=== PATIENT | female | born 1985 | race Caucasian/White ===

== ENCOUNTER 2023-09-15 08:43 | Emergency (ER) | payer OTHER ==
[~2023-09-15] VITALS: Ht 162 cm; Wt 81.0 kg
[2023-09-15] MEDS ORDERED: ESCI-2 (08:59)
[2023-09-15] MEDS ORDERED: [UNRECOGNIZED DRUG - CODE] (08:59)
[2023-09-15] MEDS ORDERED: BACL10TA (08:59)
[2023-09-15] MEDS ORDERED: LEVO1TAB7 (08:59)
[2023-09-15] MEDS ORDERED: NEOM10SO8 (08:59)
[2023-09-15] MEDS ORDERED: GBPN600T (08:59)
[2023-09-15] MEDS ORDERED: LEVO75TA6 (08:59)
[2023-09-15] MEDS ORDERED: FAMO20TA5 (08:59)
--- NOTE | 2023-09-15 09:20 | ED General ---
General Chief Complaint: Dizziness/Syncope Stated Complaint: SORE THROAT, EAR PAIN, PASSED OUT X2 Nursing Triage Note: ARRIVED VIA AMB TO ROOM 06 WITH COMPLAINTS OF SORE THORAT AND EAR ACHE X2 DAYS. STATES SHE PASSED OUT X2 THIS AM. UNKNOWN IF SHE HIT HER HEAD. COVID + 2 WEEKS AGO. Source of Information: Patient Exam Limitations: No Limitations History of Present Illness Date Seen by Provider: Sep 15, 2023 Time Seen by Provider: 09:20 Initial Comments Patient is a 37-year-old female who presents to the emergency department today with a chief complaint of syncope x2 this morning. Patient states that she has had a sore throat and earache for the last couple of days. She has been conge sted, taking DayQuil and NyQuil. She had COVID about 2 weeks ago and still feels a little rundown after that. She has a history of MS as well as thyroid disorder. Her primary care physician is Dr. MCADAMS. Her MS team [facility] at [facility]. She denies known fevers, chills, cough, shortness of breath. She states she got up this morning to do some salt water gargles and put some diclofenac gel on her neck. She states standing in the bathroom she started to feel a little lightheaded, she thinks she was going to sit down and then found herself on the floor. Her heard her in the bathroom and went in, found her and as he was holding her she had a second syncopal event. He states the first fall knocked the toilet from the bolts in the floor. She denies headache/head injury. No new complaints of pain. States that she feels like she has been drinking a good amount of water. Her MS has been stable for about 6 or 7 years. She is currently getting yearly MRIs but they stated she could move to every 2 years as she has been so stable. She takes Tecfidera. Patient tells me that she does have known history of syncope especially related to stress, IVs/blood draws. Timing/Duration: 1 Hour Severity: Moderate Associated Systoms: Malaise, Other (sore throat; neck pain) Allergies and Home Medications Allergies Coded Allergies: No Known Drug Allergies (Unverified , 09/04/10) Patient Home Medication List Home Medication List Reviewed: Yes Baclofen (Baclofen) 10 Mg Tablet, (Reported) Entered as Reported by: JYOTSNA ALEJO on 09/15/23858 Last Action: New Order Dimethyl Fumarate (Dimethyl Fumarate) 240 Mg Capsule., (Reported) Entered as Reported by: JYOTSNA ALEJO on 09/15/23858 Last Action: New Order Escitalopram Oxalate (Escitalopram Oxalate) 10 Mg Tablet, (Reported) Entered as Reported by: JYOTSNA ALEJO on 09/15/23858 Last Action: New Order Famotidine (Famotidine) 20 Mg Tablet, (Reported) Entered as Reported by: JYOTSNA ALEJO on 09/15/23858 Last Action: New Order Gabapentin (Gabapentin) 600 Mg Tablet, (Reported) Entered as Reported by: JYOTSNA ALEJO on 09/15/23858 Last Action: New Order Levonorgestrel-Ethin Estradiol (Lessina-28 Tablet) 0.1 Mg-20 Mcg Tablet, (Reported) Entered as Reported by: JYOTSNA ALEJO on 09/15/23858 Last Action: New Order Levothyroxine Sodium (Levothyroxine Sodium) 75 Mcg Tablet, (Reported) Entered as Reported by: JYOTSNA ALEJO on 09/15/23858 Last Action: New Order Neomycin/Polymyxin B Sulf/Hc (Tzwjmavy-Dvheyyoug-Fb Ear Soln) 3.5 Mg/Ml-10,000 Unit/Ml-1 % Solution, (Reported) Entered as Reported by: JYOTSNA ALEJO on 09/15/23858 Last Action: New Order Pseudoephedrine HCl (Pseudoephedrine ER) 120 Mg Tablet.er, 120 MG PO BID PRN for congestion Prescribed by: EDISON WAKEFIELD on 09/15/23 1141 Review of Systems Review of Systems Constitutional: see HPI, malaise EENTM: throat pain, other (hoarse voice; sore neck) Respiratory: no symptoms reported Cardiovascular: no symptoms reported Gastrointestinal: no symptoms reported Genitourinary: no symptoms reported Musculoskeletal: no symptoms reported Skin: no symptoms reported Psychiatric/Neurological: Other (syncope x2) Past Cvxshql-Wxcqjx-Owfwoo Hx Patient Social History Tobacco Use?: No Substance use?: No Physical Exam Vital Signs Vital Signs - First Documented 09/15/23 08:45 Temp 37.0 Pulse 119 Resp 16 B/P (MAP) 131/83 (99) Pulse Ox 98 O2 Delivery Room Air Capillary Refill : Less Than 3 Seconds Height, Weight, BMI Height: '" Weight: lbs. oz. kg; 30.00 BMI Method: General Appearance: No Apparent Distress, WD/WN, Anxious Eyes: Bilateral Eye Normal Inspection, Bilateral Eye PERRL, Bilateral Eye EOMI HEENT: PERRL/EOMI, Moist Mucous Membranes; No Pharyngeal Erythema; TM Abnormal (R) (bullae with effusion right TM); No Tonsillar Exudate, No Tonsillar Enlargement Neck: Full Range of Motion, Lymphadenopathy (L), Lymphadenopathy (R), Tender Lateral Respiratory: Lungs Clear, Normal Breath Sounds, No Accessory Muscle Use, No Respiratory Distress Cardiovascular: Regular Rate, Rhythm, Normal Peripheral Pulses Gastrointestinal: Normal Bowel Sounds, Non Tender, Soft Extremity: Normal Inspection Neurologic/Psychiatric: Alert, Oriented x3, No Motor/Sensory Deficits, 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 Norm as Tested, Other (slightly tearful) Skin: Warm/Dry, Pallor (slight pallor) Progress/Results/Core Measures Suspected Sepsis SIRS Temperature: Pulse: 119 Respiratory Rate: 16 Laboratory Tests 09/15/23 09:33: White Blood Count 18.9H Blood Pressure 131 /83 Mean: 99 Laboratory Tests 09/15/23 09:33: Creatinine 0.72, Platelet Count 305, Total Bilirubin 0.4 Results/Orders Lab Results Laboratory Tests Test 09/15/23 08:46 09/15/23 09:10 09/15/23 09:32 09/15/23 09:33 Range/Units Lab Scanned Report Referred Lab Report [id number] Urine Color YELLOW Urine Clarity CLEAR Urine pH 6.0 5-9 Urine Specific [place] 1.025 H 1.016-1.022 Urine Protein 1+ H NEGATIVE Urine Glucose (UA) NEGATIVE NEGATIVE Urine Ketones 4+ H NEGATIVE Urine Nitrite NEGATIVE NEGATIVE Urine Bilirubin NEGATIVE NEGATIVE Urine Urobilinogen 0.2 < = 1.0 MG/DL Urine Leukocyte Esterase TRACE H NEGATIVE Urine RBC (Auto) 1+ H NEGATIVE Urine RBC 5-10 H /HPF Urine WBC 2-5 /HPF Urine Squamous Epithelial Cells 5-10 /HPF Urine Crystals NONE /LPF Urine Bacteria MODERATE H /HPF Urine Casts NONE /LPF Urine Mucus SMALL H /LPF Urine Culture Indicated YES Group A Streptococcus Screen Not Detected NotDetected White Blood Count 18.9 H 4.3-11.0 10^3/uL Red Blood Count 4.35 3.80-5.11 10^6/uL Hemoglobin 13.1 11.5-16.0 g/dL Hematocrit 39 35-52 % Mean Corpuscular Volume 90 80-99 fL Mean Corpuscular Hemoglobin 30 25-34 pg Mean Corpuscular Hemoglobin Concent 33 32-36 g/dL Red Cell Distribution Width 12.7 10.0-14.5 % Platelet Count 305 130-400 10^3/uL Mean Platelet Volume 9.6 9.0-12.2 fL Immature Granulocyte % (Auto) 1 % Neutrophils (%) (Auto) 88 H 42-75 % Lymphocytes (%) (Auto) 5 L 12-44 % Monocytes (%) (Auto) 6 0-12 % Eosinophils (%) (Auto) 0 0-10 % Basophils (%) (Auto) 1 0-10 % Neutrophils # (Auto) 16.6 H 1.8-7.8 10^3/uL Lymphocytes # (Auto) 0.9 L 1.0-4.0 10^3/uL Monocytes # (Auto) 1.1 H 0.0-1.0 10^3/uL Eosinophils # (Auto) 0.1 0.0-0.3 10^3/uL Basophils # (Auto) 0.1 0.0-0.1 10^3/uL Immature Granulocyte # (Auto) 0.2 H 0.0-0.1 10^3/uL Neutrophils % (Manual) 85 % Lymphocytes % (Manual) 7 % Monocytes % (Manual) 8 % Hypersegmented Neutrophils SLIGHT Clumped Platelets Blood Morphology Comment NORMAL Sodium Level 137 135-145 MMOL/L Potassium Level 3.8 3.6-5.0 MMOL/L Chloride Level 105 98-107 MMOL/L Carbon Dioxide Level 20 L 21-32 MMOL/L Anion Gap 12 5-14 MMOL/L Blood Urea Nitrogen 8 7-18 MG/DL Creatinine 0.72 0.60-1.30 MG/DL Estimat Glomerular Filtration Rate 110 BUN/Creatinine Ratio 11 Glucose Level 113 H 70-105 MG/DL Calcium Level 9.3 8.5-10.1 MG/DL Corrected Calcium 9.1 8.5-10.1 MG/DL Total Bilirubin 0.4 0.1-1.0 MG/DL Aspartate Amino Transf (AST/SGOT) 10 5-34 U/L Alanine Aminotransferase (ALT/SGPT) 12 0-55 U/L Alkaline Phosphatase 63 40-136 U/L C-Reactive Protein High Sensitivity 13.68 H 0.00-0.50 MG/DL Total Protein 7.8 6.4-8.2 GM/DL Albumin 4.2 3.2-4.5 GM/DL TSH [place] Testing 1.19 0.35-4.94 UIU/ML Monoscreen NEGATIVE NEGATIVE Micro Results Microbiology 09/15/23 Urine Culture - Final, Complete >=3 Gram Positive Isolates My Orders Orders - EDISON WAKEFIELD MD Ua Culture If Indicated (09/15/23 09:13) Ed Iv/Invasive Line Start (09/15/23 09:31) Monotest (09/15/23 09:31) Rapid Strep A Screen (09/15/23 09:31) Cbc And Automated Diff (09/15/23 09:31) Comprehensive Metabolic Panel (09/15/23 09:31) Urine Bedside (09/15/23 09:31) Ekg Tracing (09/15/23 09:31) Thyroid Analyzer (09/15/23 09:35) Ns Iv 1000 Ml (Ns Iv 1000 Ml) (09/15/23 09:35) Urine Culture (09/15/23 09:10) Orthostatic Vital Signs (Adult (09/15/23 09:45) Manual Differential (09/15/23 09:33) Ct Neck (Soft Tissue) W (09/15/23 10:34) Iohexol Injection (Omnipaque 350 Mg/Ml 1 (09/15/23 10:45) Received Contrast (Hold Metformin- Contr (09/15/23 10:45) Ns (Ivpb) 100 Ml (Sodium Chloride 0.9% 1 (09/15/23 10:45) Hs C Reactive Protein (09/15/23 10:53) Medications Given in ED Vital Signs/I&O 09/15/23 09/15/23 09/15/23 08:45 09:50 12:02 Temp 37.0 Pulse 119 89 85 95 105 Resp 16 16 B/P (MAP) 131/83 (99) 109/80 (90) 127/81 119/80 (93) 122/67 (85) Pulse Ox 98 97 O2 Delivery Room Air Room Air Capillary Refill : Less Than 3 Seconds Blood Pressure Mean: 99 Progress Note : Time: 11:30 Progress Note Patient seen and evaluated by me, evaluation today includes history and physical exam with CBC, comprehensive metabolic panel, mono and strep testing, urinalysis, EKG, thyroid analyzer, orthostatic vital signs and CT neck with IV contrast. Pertinent physical exam findings well-developed well-nourished female, slightly pale, tearful and a little anxious appearing. She has tender anterior cervical lymphadenopathy and tenderness over the SCM's bilaterally. HEENT exam is otherwise unremarkable. Heart is slightly tachycardic rate 95. Lungs are clear. Abdomen is soft. No rashes. No obvious outward signs of trauma. No focal neurologic deficits. Differential diagnosis includes viral syndrome, dehydration, strep throat, mono, UTI Labs, EKG independently reviewed and interpreted by me. Her CBC shows a leukocytosis of 18.9 with 88% segmented neutrophils. Normal H&H and platelets. Her comprehensive metabolic panel is entirely normal. Her CRP is elevated at 13.68. Urinalysis is quite concentrated with 4+ ketones, 5-10 red blood cells per high-powered field and moderate bacteria. Carver and strep are negative. Or thostatic vital signs are reassuring. CT neck with IV contrast per the radiologist shows diffusely prominent lymph nodes that are subcentimeter in size, likely reactive. He identified no mass or fluid collection in the neck. Patient was treated with a liter of normal saline. She felt better after fluids. I discussed with her that this is likely a viral type illness and as she is "prone" to syncopal episodes that possibly this is what precipitated her syncope this morning. She would be at high risk for bacterial infection due to her immunocompromise state on her MS meds. I strongly encouraged her and her to monitor her for worsening symptoms especially fever. She is comfortable with the plan of care. Encouraged follow-up with her primary care this week. All questions are sought and answered. Patient is improved at discharge. ECG Initial ECG Impression Date: Sep 15, 2023 Initial ECG Impression Time: 09:44 Initial ECG Rate: 93 Initial ECG Rhythm: Normal Sinus Initial ECG Intervals: Normal Initial ECG Impression: Normal, Nonspecific Changes Diagnostic Imaging Diagonstic Imaging: CT Comments [facility], [place] NAME: JESSEE MUNOZ [facility] REC#: [id number] PT STATUS: DEP ER : 1985 PHYSICIAN: EDISON WAKEFIELD MD ADMIT DATE: 09/15/23/ER Signed Date of Exam:09/15/23 CT NECK (SOFT TISSUE) W PROCEDURE: CT neck soft tissue with contrast. TECHNIQUE: Multiple contiguous axial images were obtained through the neck after the administration of contrast. Auto Exposure Controls were utilized during the CT exam to meet ALARA standards for radiation dose reduction. INDICATION: Sore throat. Earache. Syncope. COMPARISON: None. FINDINGS: No suspicious mass or enhancement in the pharynx or larynx. The floor of the mouth, tongue base, epiglottis and retropharyngeal space are unremarkable. No tonsillar or peritonsillar fluid collections. Diffusely prominent lymph nodes which remain subcentimeter in short axis dimension. The major vessels in the neck are grossly patent. The thyroid and major salivary glands are negative. No acute osseous findings. The lung apices are clear. IMPRESSION: 1. Diffusely prominent cervical lymph nodes which remain subcentimeter in short axis dimension. These are likely reactive. 2. No mass or fluid collection in the neck. Dictated by: Dictated on workstation # [id number] Dict: 09/15/23 1101 Trans: 09/15/23 1205 CV [id number] Interpreted by: ROYER PARKER MD Electronically signed by: ROYER PARKER MD 09/15/23 1205 Departure Impression Primary Impression: Acute viral syndrome Additional Impression: Syncope Qualified Codes: R55 - Syncope and collapse Disposition: 01 HOME, SELF-CARE Condition: Improved Departure-Patient Inst. Decision time for Depature: 11:39 Referrals: CAROLINA MCADAMS DO (PCP) Primary Care Physician Add. Discharge Instructions: Continue to drink plenty of fluids to stay well-hydrated. The Sudafed will dry you out a little bit so make sure to compensate for that with water, Gatorade, Pedialyte. Take the Sudafed 1 tablet every 12 hours as needed for congestion, sinus drainage Continue your home daily medications as prescribed. If you develop a fever or any other emergent, concerning symptoms please return to the emergency department for reevaluation. Please call Dr. MCADAMS's office tomorrow for a follow-up appointment this week Scripts Pseudoephedrine HCl (Pseudoephedrine ER) 120 Mg Tablet.er 120 MG PO BID PRN for congestion, #30 TAB Prov: EDISON WAKEFIELD MD 09/15/23 Copy Copies To 1: CAROLINA MCADAMS KATHRYN M MD Sep 15, 2023 09:20
[2023-09-15 09:33] LABS: CLARITY,URINE CLEAR; COLOR,URINE YELLOW; GLUCOSE, URINE (UA) NEGATIVE (NEGATIVE); PROTEIN,URINE 1+ (NEGATIVE)
[2023-09-15] MEDS ORDERED: NS IV 1000 ML 1,000 ML IV STA (09:35)
[2023-09-15 09:36] LABS: BACTERIA,URINE MODERATE /HPF; BILIRUBIN,URINE NEGATIVE (NEGATIVE); KETONES,URINE 4+ (NEGATIVE); LEUKOCYTE ESTERASE ,URINE TRACE (NEGATIVE); NITRITE,URINE NEGATIVE (NEGATIVE)
[2023-09-15 09:41] LABS: BASOPHILS # (AUTO) 0.1 10^3/uL (0.0-0.1); BASOPHILS % (AUTO) 1 % (0-10); EOSINOPHILS # (AUTO) 0.1 10^3/uL (0.0-0.3); EOSINOPHILS % (AUTO) 0 % (0-10); HEMATOCRIT 39 % (35-52); HEMOGLOBIN 13.1 g/dL (11.5-16.0); LYMPHOCYTES # (AUTO) 0.9 10^3/uL (1.0-4.0); LYMPHOCYTES % (AUTO) 5 % (12-44); MEAN CORPUSCULAR HEMOGLOBIN 30 pg (25-34); MEAN CORPUSCULAR HGB CONC 33 g/dL (32-36); MEAN CORPUSCULAR VOLUME 90 fL (80-99); MEAN PLATELET VOLUME 9.6 fL (9.0-12.2); MONOCYTES # (AUTO) 1.1 10^3/uL (0.0-1.0); MONOCYTES % (AUTO) 6 % (0-12); NEUTROPHILS # (AUTO) 16.6 10^3/uL (1.8-7.8); NEUTROPHILS % (AUTO) 88 % (42-75); PLATELET COUNT 305 10^3/uL (130-400); WHITE BLOOD COUNT 18.9 10^3/uL (4.3-11.0)
[2023-09-15 09:50] VITALS: BP_SYST 109; BP_SYST 119; BP_SYST 122; BP_DIAS 67; BP_DIAS 80
[2023-09-15 09:53] LABS: ALBUMIN 4.2 GM/DL (3.2-4.5)
[2023-09-15 09:54] LABS: POTASSIUM 3.8 MMOL/L (3.6-5.0)
[2023-09-15 09:55] LABS: CALCIUM 9.3 MG/DL (8.5-10.1)
[2023-09-15 09:56] LABS: TOTAL PROTEIN 7.8 GM/DL (6.4-8.2)
[2023-09-15 09:58] LABS: BILIRUBIN,TOTAL 0.4 MG/DL (0.1-1.0)
[2023-09-15 10:00] LABS: CREATININE SERUM 0.72 MG/DL (0.60-1.30)
[2023-09-15 10:19] LABS: NEUTROPHILS % (MANUAL) 85 %
[2023-09-15 10:20] LABS: HYPERSEGMENTED NEUT SLIGHT; LYMPHOCYTES % (MANUAL) 7 %; MONOCYTES % (MANUAL) 8 %; RBC MORPH NORMAL
[2023-09-15 10:22] LABS: TSH (THYROID ANALYZER) 1.19 UIU/ML (0.35-4.94)
[2023-09-15] MEDS ORDERED: HOLD METFORMIN - RECEIVED CONTRAST 20 ML VIAL IV SCH (10:45)
[2023-09-15] MEDS ORDERED: NS 100 ML (IVPB) BAG IV ONE (10:45)
[2023-09-15] MEDS ORDERED: IOHEXOL 350 MG/ML 100 ML (OMNIPAQUE 350) VIAL IV ONE (10:45)
--- NOTE | 2023-09-15 11:09 | Diagnostic Imaging Report ---
PROCEDURE: CT neck soft tissue with contrast. TECHNIQUE: Multiple contiguous axial images were obtained through the neck after the administration of contrast. Auto Exposure Controls were utilized during the CT exam to meet ALARA standards for radiation dose reduction. INDICATION: Sore throat. Earache. Syncope. COMPARISON: None. FINDINGS: No suspicious mass or enhancement in the pharynx or larynx. The floor of the mouth, tongue base, epiglottis and retropharyngeal space are unremarkable. No tonsillar or peritonsillar fluid collections. Diffusely prominent lymph nodes which remain subcentimeter in short axis dimension. The major vessels in the neck are grossly patent. The thyroid and major salivary glands are negative. No acute osseous findings. The lung apices are clear. IMPRESSION: 1. Diffusely prominent cervical lymph nodes which remain subcentimeter in short axis dimension. These are likely reactive. 2. No mass or fluid collection in the neck. Dictated by: Dictated on workstation # [id number]
[2023-09-15] MEDS ORDERED: PSEU120T75 PO (11:40)
[2023-09-15 12:02] VITALS: BP 127/81
== END 2023-09-15 12:01 | disposition home or self-care (01) ==
LOC: EDUNIT# 08:43 → ER 08:46
DX: B34.9 Viral infection, unspecified (principal); R55 Syncope and collapse; Z86.16 Personal history of COVID-19
CPT/HCPCS: 36415; 70491; 80053; 81000; 84443; 84703; 85007; 85027; 86141; 86308; 87088; 87430; 93005